=== PATIENT | male | born 1935 | race Hispanic/Latino ===

== ENCOUNTER 2016-12-01 06:11 | Day surgery (SDC) | payer MEDICARE, BC, MEDICAID ==
[2016-11-28 11:29] VITALS: BMI 29.6
[2016-12-01] MEDS ORDERED: Lidocaine 2% Inj (20ml) ONE (06:32)
[2016-12-01] MEDS ORDERED: Iodixanol 320 MG/ML 100 ML BOTTLE IV ONE (06:33)
[2016-12-01] MEDS ORDERED: Nitroglycerin 50mg in D5W 0 MG/0 ML BOTTLE IV ONE (06:33)
[2016-12-01] MEDS ORDERED: Iodixanol 320 MG/ML 200 ML BOTTLE IV ONE (06:33)
[2016-12-01] MEDS ORDERED: Phenylephrine 10 mg/ml Inj ONE (06:33)
[2016-12-01] MEDS ORDERED: Iohexol 350mgl/ml 50 ML ONE (06:33)
[2016-12-01] MEDS ORDERED: Midazolam 2 MG/2 ML VIAL ONE (07:09)
[2016-12-01 07:15] LABS: ADD MANUAL DIFF? NO; BASO # 0.04 K/mm3 (0.0-2.0); BASO % 0.5 % (0.0-3.0); EOS # 0.3 (0.0-0.7); EOS % 4.5 % (1.5-5.0); GRAN # 4.67 (1.4-6.5); GRAN % 63.1 % (50.0-68.0); HEMATOCRIT 39.4 % (42.0-52.0); LYMPH # 1.7 (1.2-3.4); MEAN CELL VOLUME 94.5 fL (80.0-105.0); MEAN CORPUSCULAR HEMOGLOBIN 32.6 pg (25.0-35.0); MEAN CORPUSCULAR HGB CONC 34.5 g/dl (31.0-37.0); MEAN PLATELET VOLUME 11.8 fl (7.0-11.0); MONO # 0.7 (0.1-0.6); MONO % 8.9 % (1.0-6.0); PLATELET COUNT 158 10^3/uL (120.0-450.0); RED CELL DISTRIBUTION WIDTH 15.4 % (11.5-14.5); WHITE BLOOD COUNT 7.4 10^3/ul (4.5-11.0)
[2016-12-01 07:24] LABS: INR 1.17 (0.93-1.08); PARTIAL THROMBOPLASTIN TIME 28.7 Seconds (23.7-30.8)
[2016-12-01 07:28] LABS: CALCIUM 10.1 mg/dL (8.4-10.5); POTASSIUM 3.5 mmol/L (3.6-5.0)
[2016-12-01] MEDS ORDERED: Sodium Bicarbonate (8.4%) 50 Meq Syringe ONE ×2 (07:36→07:47)
[2016-12-01] MEDS ORDERED: Potassium Chloride 20 mEq ER Tab PO ONE ×2 (10:00→15:49)
[2016-12-01] MEDS ORDERED: Sodium Bicarbonate 8.4% 100 MEQ in Dextrose 5% In Water 1,000 ML IV SCH (10:00)
[2016-12-01] MEDS ORDERED: Sodium Bicarbonate 8.4% 130 MEQ in Sodium Chloride 0.45% 1,000 ML IV SCH (10:30)
[2016-12-01 11:35] VITALS: O2SAT 99
[2016-12-01 13:21] VITALS: PULSE 60
[2016-12-01 15:06] LABS: ADD MANUAL DIFF? NO
[2016-12-01 15:12] LABS: BASO # 0.03 K/mm3 (0.0-2.0); BASO % 0.5 % (0.0-3.0); EOS # 0.3 (0.0-0.7); EOS % 5.1 % (1.5-5.0); GRAN % 55.9 % (50.0-68.0); HEMATOCRIT 37.8 % (42.0-52.0); LYMPH # 1.6 (1.2-3.4); LYMPH % 27.7 % (22.0-35.0); MEAN CELL VOLUME 94.3 fL (80.0-105.0); MEAN CORPUSCULAR HEMOGLOBIN 32.7 pg (25.0-35.0); MEAN CORPUSCULAR HGB CONC 34.7 g/dl (31.0-37.0); MEAN PLATELET VOLUME 11.6 fl (7.0-11.0); MONO # 0.6 (0.1-0.6); MONO % 10.8 % (1.0-6.0); PLATELET COUNT 135 10^3/uL (120.0-450.0); WHITE BLOOD COUNT 5.7 10^3/ul (4.5-11.0)
[2016-12-01 15:20] LABS: CALCIUM 9.6 mg/dL (8.4-10.5); POTASSIUM 3.3 mmol/L (3.6-5.0)
[2016-12-01] MEDS ORDERED: Potassium Chloride 20 mEq ER Tab PO STA (15:40)
[2016-12-01 17:10] VITALS: BP 113/65; RESP 20; TEMP 98
--- NOTE | 2016-12-01 17:59 | CARD ---
APPROVED REPORT Procedure(s) performed: Left Heart Catheterization HISTORY The patient is a 81 year-old male with a history of : most recent EF: 40%. (EF Method: Echocardiogram), previous CHF, renal failure , previous CVA , peripheral vascular disease, diabetes mellitus with oral treatment , chronic lung disease, previous diagnostic cath, tobacco history() : The patient is a former smoker , previous PCI (The PCI date was 11/11/2012), hypertension , dyslipidemia , cerebrovascular disease , HX of AICD., Chest pain increasing SOB, JACOBSEN, Ch A fib, CKD with base line creatinine 2.0 and abnormal Stress test. INDICATION The indication(s) include : positive stress test. CASE TECHNIQUE The patient was brought electively to the Cardiac Catheterization Laboratory in a fasting state and was prepped and draped in a sterile manner. The right femoral groin was infiltrated with 2% Lidocaine subcutaneous anesthesia. A 6 Fr x 11 cm Danielle sheath was inserted into the right femoral artery without difficulty. Coronary angiography was performed using coronary diagnostic catheters. The left coronary system was accessed and visualized with a Diagnostic ,6 Fr JL 4 catheter. The right coronary system was accessed and visualized with a Diagnostic ,6 Fr JR 4 catheter. The left ventricle was accessed and visualized with a 6 Fr Pigtail catheter. Left ventricular/Aortic Valve gradient assessed on pullback. Left ventriculogram was performed in CHRISTINA projection. Closure device was deployed with a 6 Fr / 7 Fr MynxGrip without any complications. The patient tolerated the procedure well and there were no complications associated with the procedure. Vessel Analysis The patient's coronary anatomy is co-dominant. The left main coronary artery is a large size vessel with diffuse calcification noted throughout this vessel and without significant stenosis. The left main bifurcates to the left anterior descending and circumflex. The left anterior descending artery is a medium size vessel with diffuse calcification noted throughout this vessel and without significant stenosis. There is a 55% stenosis in the mid segment. Patent stent in proximal segment The first diagonal branch is a medium size vessel with diffuse calcification noted throughout this vessel and without significant stenosis. The second diagonal branch is a medium size vessel with diffuse calcification noted throughout this vessel and without significant stenosis. The circumflex artery is a large size vessel with diffuse calcification noted throughout this vessel and without significant stenosis. The first obtuse marginal branch is a medium size vessel with diffuse calcification noted throughout this vessel and without significant stenosis. The second obtuse marginal branch is a medium size vessel with diffuse calcification noted throughout this vessel and without significant stenosis. The third obtuse marginal branch is a large size vessel with diffuse calcification noted throughout this vessel and without significant stenosis. The right coronary artery is a large size vessel with diffuse calcification noted throughout this vessel and without significant stenosis. The right posterior descending artery is a medium size vessel with diffuse calcification noted throughout this vessel and without significant stenosis. Left Ventricle The left ventricle is moderately enlarged in size with moderately decreased contractility. Ischemic and Non-Ischemic cardiomyopathy. The left ventricular ejection fraction is estimated to be 25%. The left ventricular end diastolic pressure is 15 mmHg. There was no gradient across the aortic valve upon pullback. Conclusion Patent Stent in proximal LAD, Distal to stent LAD has 55% stenosis. Ischemic and Non Ischemic CMP, EF-25%, EDP-18 mmof Hg S/P AICD Implantable Loop recorer noted in place only 30 cc contrast used Recommendations Cardiac Rehabilitation Referral Aggressive Medical TherapyCardiac Risk Reduction Program Weight Loss Reduction Program IV hydration with Bicarb drip for 8 hours. Consider Removal of Loop recorder ? as per EPS. F/U renal Fx post cath after hydration before goes home and in one week CC; Dr. Fleming.
== END 2016-12-01 17:45 | disposition home or self-care (01) ==
LOC: CATH 06:11
PROVIDERS: ATTEND Internal Medicine Cardiovascular Disease
DX: I25.10 Atherosclerotic heart disease of native coronary artery without angina pectoris (principal); I25.5 Ischemic cardiomyopathy; I12.9 Hypertensive chronic kidney disease with stage 1 through stage 4 chronic kidney disease, or unspecified chronic kidney disease; I50.9 Heart failure, unspecified; E11.22 Type 2 diabetes mellitus with diabetic chronic kidney disease; N18.9 Chronic kidney disease, unspecified; E11.51 Type 2 diabetes mellitus with diabetic peripheral angiopathy without gangrene; E78.5 Hyperlipidemia, unspecified; I48.2 Chronic atrial fibrillation; Z79.01 Long term (current) use of anticoagulants; Z86.73 Personal history of transient ischemic attack (TIA), and cerebral infarction without residual deficits; Z87.891 Personal history of nicotine dependence; Z95.810 Presence of automatic (implantable) cardiac defibrillator; Z95.5 Presence of coronary angioplasty implant and graft
CPT/HCPCS: 36415; 80048; 80061; 85025; 85610; 85730; 86850; 86900; 93458; 99152; C1760; C1769; C2629; J1644; J1940; J2250; J3010; J7030 ×2; J7070